=== PATIENT | male | born 1955 | race Caucasian/White ===

== ENCOUNTER 2022-09-27 12:37 | Emergency (ER) | payer SELFPAY ==
[2022-09-27 12:57] VITALS: BP 136/77; PULSE 56; RESP 18; TEMP 98.3; BMI 28.1
== END 2022-09-27 13:02 | disposition home or self-care (01) ==
LOC: FER 12:37
DX: Z76.0 Encounter for issue of repeat prescription (principal)
CPT/HCPCS: 99281-25